=== PATIENT | male | born 1985 | race African-American/Black ===

== ENCOUNTER → 2018-08-16 | Day surgery (SDC) | payer OTHER ==
[~2018-08-16] MED LIST: ASPIRIN325 MG PO; LIDOCAINE HCL 2% LOCAL INJ 5 ML SDV VIAL INJ ONE; PROAIR HFA INH8.5 GM INH; PROPOFOL IV EMULSION 10 MG/ML 20 ML VIAL ONE
[2018-08-16 12:37] VITALS: BP 102/68
== END | disposition home or self-care (01) ==
LOC: OR 09:28
PROVIDERS: ATTEND Internal Medicine Gastroenterology
DX: K60.2 Anal fissure, unspecified (principal); K64.8 Other hemorrhoids; F41.9 Anxiety disorder, unspecified; J45.909 Unspecified asthma, uncomplicated; Z86.73 Personal history of transient ischemic attack (TIA), and cerebral infarction without residual deficits
CPT/HCPCS: 45330; J2001; J2704